=== PATIENT | female | born 1985 | race African-American/Black ===

== ENCOUNTER 2025-01-21 05:20 | Inpatient (IN) | payer MEDICAID ==
[~2025-01-21] VITALS: Ht 162.6 cm; Wt 70.8 kg
[2025-01-21] MEDS: KETOROLAC 30MG/ML VIAL IV STA (06:04)
[2025-01-21] MEDS: METOCLOPRAMIDE HCL 10MG/2ML VIAL IV ONE (06:05)
[2025-01-21] MEDS: SODIUM CHLORIDE 0.9% 1,000 ML IV ONE ×2 (06:05→10:05)
[2025-01-21 06:18] LABS: CHLORIDE 102 mEq/L (98-107); SODIUM 138 mEq/L (136-145)
[2025-01-21 06:19] LABS: CALCIUM 11.4 mg/dL (8.7-10.4); CARBON DIOXIDE 22 mEq/L (21-32)
[2025-01-21 06:24] LABS: CREATININE 1.8 mg/dL (0.6-1.0); GLUCOSE 148 mg/dL (70-105); UREA NITROGEN BLOOD 20 mg/dL (9-23)
[2025-01-21 06:26] LABS: ALANINE AMINOTRANSFERASE 14 IU/L (10-49); ALBUMIN 5.8 g/dL (3.2-4.8); ASPARTATE AMINOTRANSFERASE 19 IU/L (<34); BILIRUBIN DIRECT 0.3 mg/dL (<=3.0); BILIRUBIN TOTAL 0.9 mg/dL (0.1-1.0); PROTEIN TOTAL 9.8 g/dL (6.0-8.3)
[2025-01-21 06:28] LABS: INR 1.1; PROTHROMBIN TIME 11.6 sec (9.6-11.0)
[2025-01-21 06:31] LABS: HEMATOCRIT. 44.2 % (36.0-48.0); HEMOGLOBIN. 14.5 g/dL (12.0-16.0); MEAN CORPUSCULAR HGB CONC 32.8 g/dL (31.0-37.0); MEAN CORPUSCULAR VOLUME 91.5 fL (81.0-99.0); PLATELET 274 x1000/uL (130-400); RED BLOOD CELL COUNT 4.83 mill/uL (4.2-5.4); RED CELL DISTRIBUTION WIDTH 14.7 % (11.6-14.6); WHITE BLOOD COUNT 17.1 x1000/uL (4.5-11.0)
[2025-01-21 06:32] LABS: DIFFERENTIAL COMMENT 1
[2025-01-21 07:08] LABS: HCG SCREEN NEGATIVE
[2025-01-21 10:00] VITALS: BP 122/72; PULSE 76; RESP 19; TEMP 36.5
[2025-01-21] MEDS: ONDANSETRON HCL 4MG/2ML INJ IV ONE (10:04)
[2025-01-21 10:18] LABS: PLATELET ESTIMATE NORMAL
[2025-01-21 12:00] VITALS: BP 140/87; PULSE 70; RESP 18; TEMP 36.8; O2SAT 100
[2025-01-21] MEDS ORDERED: NALOXONE HCL 0.4MG/ML VIAL IV PRN (12:30)
[2025-01-21] MEDS ORDERED: NALOXONE HCL 0.4MG/ML 1ML VIAL IV PRN (12:30)
[2025-01-21] MEDS ORDERED: ONDANSETRON HCL 4MG/2ML INJ IV PRN (12:45)
[2025-01-21] MEDS: MORPHINE SULFATE 2 MG/ML INJ (NOT FOR IM USE) IV PRN (13:35)
[2025-01-21] MEDS ORDERED: ACETAMINOPHEN 325MG TABLET PO PRN (13:45)
[2025-01-21] MEDS ORDERED: CLONIDINE 0.1MG TABLET PO PRN (13:45)
[2025-01-21] MEDS ORDERED: MAGNESIUM/ALUMINUM HYDROXIDE/SIMETHICONE 30ML UDC PO PRN (13:45)
[2025-01-21] MEDS: ENOXAPARIN 40MG/0.4ML SYR SUBCUT SCH (14:00)
[2025-01-21] MEDS: PIPERACILLIN/TAZO 3.375G/50ML 50 ML IV SCH (14:31)
[2025-01-21 15:51] LABS: BASOPHILS % 0.4 % (0.0-2.0); HEMATOCRIT. 36.2 % (36.0-48.0); HEMOGLOBIN. 11.7 g/dL (12.0-16.0); MEAN CORPUSCULAR HEMOGLOBIN 29.6 pg (28.0-32.0); MEAN CORPUSCULAR HGB CONC 32.4 g/dL (31.0-37.0); MEAN CORPUSCULAR VOLUME 91.4 fL (81.0-99.0); MEAN PLATELET VOLUME 7.7 fl (7.4-10.4); MONOCYTES % 4.2 % (2.0-8.0); NEUTROPHILS % 87.4 % (40.0-76.0); PLATELET 209 x1000/uL (130-400); RED BLOOD CELL COUNT 3.96 mill/uL (4.2-5.4); RED CELL DISTRIBUTION WIDTH 14.8 % (11.6-14.6); WHITE BLOOD COUNT 15.2 x1000/uL (4.5-11.0)
[2025-01-21 16:00] VITALS: BP 137/76; PULSE 67; RESP 18; TEMP 36.5; O2SAT 96
[2025-01-21 20:00] VITALS: BP 146/77; PULSE 68; RESP 18; TEMP 37.1; O2SAT 98
[2025-01-22] VITALS: BP 136/78; PULSE 72; RESP 18; TEMP 36.5; O2SAT 99
[2025-01-22 04:00] VITALS: BP 127/79; PULSE 70; RESP 18; TEMP 36; O2SAT 100
[2025-01-22] MEDS: ONDANSETRON HCL 4MG/2ML INJ IV PRN (06:03)
[2025-01-22 08:00] VITALS: BP 128/59; PULSE 67; RESP 20; TEMP 36.5; O2SAT 99
[2025-01-22] MEDS: HYDROCODONE/ACETAMINOPHEN 5/325MG TABLET PO PRN (08:24)
[2025-01-22] MEDS: PANTOPRAZOLE SODIUM 40 MG/VIAL IV SCH (08:25)
[2025-01-22 09:08] LABS: CHLORIDE 103 mEq/L (98-107); POTASSIUM 3.9 mEq/L (3.5-5.1); SODIUM 137 mEq/L (136-145)
[2025-01-22 09:09] LABS: CALCIUM 9.5 mg/dL (8.7-10.4); CARBON DIOXIDE 25 mEq/L (21-32)
[2025-01-22 09:14] LABS: GLUCOSE 109 mg/dL (70-105); UREA NITROGEN BLOOD 14 mg/dL (9-23)
[2025-01-22 09:16] LABS: BASOPHILS % 0.2 % (0.0-2.0); EOSINOPHILS % 0.1 % (0.0-5.0); HEMATOCRIT. 36.4 % (36.0-48.0); HEMOGLOBIN. 12.2 g/dL (12.0-16.0); LYMPHOCYTES % 12.5 % (20.0-50.0); MEAN CORPUSCULAR HEMOGLOBIN 30.7 pg (28.0-32.0); MEAN CORPUSCULAR HGB CONC 33.4 g/dL (31.0-37.0); MEAN CORPUSCULAR VOLUME 91.9 fL (81.0-99.0); MEAN PLATELET VOLUME 8.1 fl (7.4-10.4); NEUTROPHILS % 82.2 % (40.0-76.0); PLATELET 230 x1000/uL (130-400); RED BLOOD CELL COUNT 3.97 mill/uL (4.2-5.4); RED CELL DISTRIBUTION WIDTH 14.1 % (11.6-14.6); WHITE BLOOD COUNT 11.7 x1000/uL (4.5-11.0)
[2025-01-22 12:00] VITALS: BP 109/67; PULSE 57; RESP 20; TEMP 36.5; O2SAT 100
[2025-01-22 16:00] VITALS: BP 96/58; PULSE 88; RESP 20; TEMP 36.4; O2SAT 97
[2025-01-22] MEDS: ZOLPIDEM TARTRATE 5MG TABLET PO PRN (21:43)
[2025-01-23] VITALS: BP 100/57; PULSE 50; RESP 18; TEMP 36.9; O2SAT 100
[2025-01-23 07:31] LABS: BASOPHILS % 0.4 % (0.0-2.0); EOSINOPHILS % 0.9 % (0.0-5.0); HEMATOCRIT. 33.8 % (36.0-48.0); HEMOGLOBIN. 11.6 g/dL (12.0-16.0); LYMPHOCYTES % 24.9 % (20.0-50.0); MEAN CORPUSCULAR HEMOGLOBIN 31.7 pg (28.0-32.0); MEAN CORPUSCULAR HGB CONC 34.3 g/dL (31.0-37.0); MEAN CORPUSCULAR VOLUME 92.5 fL (81.0-99.0); MEAN PLATELET VOLUME 7.6 fl (7.4-10.4); MONOCYTES % 6.2 % (2.0-8.0); NEUTROPHILS % 67.6 % (40.0-76.0); PLATELET 215 x1000/uL (130-400); RED BLOOD CELL COUNT 3.65 mill/uL (4.2-5.4); WHITE BLOOD COUNT 8.2 x1000/uL (4.5-11.0)
[2025-01-23 07:33] LABS: POTASSIUM 3.6 mEq/L (3.5-5.1)
[2025-01-23 07:35] LABS: CALCIUM 9.4 mg/dL (8.7-10.4)
[2025-01-23 07:38] LABS: CREATININE 1.3 mg/dL (0.6-1.0)
[2025-01-23 08:00] VITALS: BP 101/55; PULSE 67; RESP 19; TEMP 36.4; O2SAT 97
[2025-01-23] MEDS: SODIUM CHLORIDE 0.9% 1,000 ML IV SCH (08:00)
[2025-01-23 08:51] VITALS: BP 101/55; PULSE 67; TEMP 97.5; O2SAT 97
[2025-01-23] MEDS ORDERED: PANT40TA51 MT (08:51)
== END 2025-01-23 09:39 | disposition home or self-care (01) | DRG 241 ==
LOC: ER 05:20 → 6EST 09:19 → EDBEDREQ 09:29 → EDBEDREQTM 09:29
PROVIDERS: ADMIT Internal Medicine; ATTEND Internal Medicine
DX: K29.70 Gastritis, unspecified, without bleeding (principal); N17.9 Acute kidney failure, unspecified; D72.829 Elevated white blood cell count, unspecified; N18.9 Chronic kidney disease, unspecified; G89.29 Other chronic pain; Z88.1 Allergy status to other antibiotic agents
CPT/HCPCS: 36415; 74176; 80048; 80061; 80076; 83036; 84145; 84703; 85025; 93970; 99285; J1650; J1885; J2270; J2405; J2470; J2543; J2765; J7030